=== PATIENT | female | born 1935 | race Caucasian/White ===

== ENCOUNTER 2017-04-25 09:55 | Outpatient (CLI) | payer MEDICARE, MEDICAID ==
[2017-04-25 11:25] LABS: Anion Gap 11 mmol/L (10-20); BUN (Urea Nitrogen) 18 mg/dL (9.8-20.1); Calc. Creatinine Clearance 0 mL/min (70-130); Calcium 9.3 mg/dL (7.8-10.44); Carbon Dioxide 28 mmol/L (23-31); Chloride 104 mmol/L (98-107); Estimated GFR-MDRD 65
[2017-04-25 11:50] LABS: Bilirubin Negative (Negative); Blood, Urine Negative (Negative); Glucose, Urine (Dipstick) Negative (Negative); Ketone, Urine Negative (Negative); Nitrite Negative (Negative); Protein, Urine (Dipstick) Negative (Neg-Trace); Urobilinogen 0.2 mg/dL (0.2-1.0)
[2017-04-25 11:55] LABS: Bacteria/HPF Rare-Few HPF (None Seen); Hyaline Casts/LPF 4-6 HYALINE CAST LPF (0-3 Hyaline); WBC/HPF 0-3 HPF (0-3)
[2017-04-25 12:32] LABS: RBC/HPF 0-3 HPF (0-3)
[2017-04-25] MEDS ORDERED: Iopamidol 370 76% 100 ML VIAL ONE (13:44)
--- NOTE | 2017-04-25 14:38 | CT ---
CT ABDOMEN AND PELVIS WITH AND WITHOUT CONTRAST: Date: 04/25/17 HISTORY: R31.29 microhematuria. N20.20 renal calculi. B17.71. Left lower quadrant pain. COMPARISON: CT stone protocol 08/26/16. FINDINGS: Heart size is mildly prominent. There is mild scarring in the lung base, lingula, and right middle lo be. Extensive atherosclerotic plaque throughout the aorta. There is ectasia of the aorta at the level of the renal arteries measuring up to 3.1 cm, previously 3.0 cm. This is similar. There is also focal ec kirti of the infrarenal abdominal aorta measuring up to 2.6 cm, previously 2.6 cm, unchanged. No aneu rysmal dilatation of the iliac arteries. There has been prior cholecystectomy. Mild prominence of the pancreatic duct. There is extrahepatic a nd intrahepatic biliary dilatation. Duodenal diverticulum is present. Bilobed cyst right lobe of live r is unchanged. There is a punctate calculus right inferior renal collecting system. No obstructive uropathy. The calices are sharp. No hydronephrosis. No hydroureter. No filling defect is appreciated on the uri nary bladder base posterior wall, although the hip arthroplasty does create some limitation of this. There is a small, fat-containing lesion inferior pole right kidney suggestive of an angiomyolipoma. T here is atrophy of the iliacus and psoas muscles bilaterally. There is also atrophy of the gluteus mu scles bilaterally, as well as posterior paraspinal muscles. There is moderate diverticular disease of the sigmoid colon. No active inflammation is currently seen . The appendix is visualized and is normal. Celiac trunk and superior mesenteric artery are patent. There is mild levoscoliosis of the thoracolum bar junction. Moderate to severe degenerative disc space disease throughout the lumbar spine. Severe facet arthropathy of L4-5 and L5-S1. IMPRESSION: 1. Nonobstructive punctate right inferior renal calculus. 2. No filling defects in the renal calices or ureters. 3. Degenerative disc space disease of the lumbar spine as described. 4. Focal ectasia of the abdominal aorta similar to the comparison examination. POS: [facility]
== END 2017-04-25 09:56 | disposition home or self-care (01) ==
LOC: CT 09:55
PROVIDERS: ATTEND Urology
DX: R31.29 Other microscopic hematuria (principal); N20.0 Calculus of kidney; D17.71 Benign lipomatous neoplasm of kidney; M51.36 Other intervertebral disc degeneration, lumbar region; I77.811 Abdominal aortic ectasia
CPT/HCPCS: 36415; 74178; 80048; 81001; 87086; 88112

== ENCOUNTER 2018-04-19 11:41 | Outpatient (CLI) | payer MEDICARE ==
--- NOTE | 2018-04-19 16:04 | BD ---
BONE DENSITOMETRY: INDICATION: An 82-year-old female for postmenopausal osteoporosis screening. FINDINGS: Wrist and lumbar spine evaluated. BMD (g/cm2) UD: 0.390 T-Score: -0.9 Mid: 0.452 T-Score: -2.8 Distal 1/3: 0.591 T-Score: -1.7 Total: 0.459 T-Score: -2.2 Lumbar Spine: BMD (g/cm2) L1 1.127 T-Score: 1.1 L2 1.286 T-Score: 2.3 L3 1.437 T-Score: 3.2 L4 1.352 T-Score: 2.6 L1-L4 1.301 T-Score: 2.3 Impression: 1. The patient's wrist indicates osteopenia. 2. The lumbar spine density is within normal range. Lumbar spine density may be erroneously elevate d due to degenerative sclerosis. 3. The distal 1/3 of wrist density on 05/26/2012 was recorded at 0.644 consistent with mild interval density loss. POS: [facility]
== END 2018-04-19 11:42 | disposition home or self-care (01) ==
LOC: BICMAMMO 11:41
PROVIDERS: ATTEND Family Medicine
DX: Z12.31 Encounter for screening mammogram for malignant neoplasm of breast (principal); M81.0 Age-related osteoporosis without current pathological fracture
CPT/HCPCS: 77063; 77067; 77080

== ENCOUNTER 2018-08-25 22:29 | Observation (INO) | payer MEDICARE, MEDICAID ==
[2018-08-26] MEDS ORDERED: traZODone HCl 50 MG TAB PO PRN (00:08)
--- NOTE | 2018-08-26 00:23 | PDOC.EVN ---
Event Note - Event Note Event Note: H&P [id number]
[2018-08-26] MEDS: Sodium Bicarbonate 50 MEQ in Sodium Chloride 0.45% 1,000 ML IV SCH ×2 (02:00→15:04)
[2018-08-26 03:28] VITALS: BMI 30.9
[2018-08-26] MEDS: metroNIDAZOLE 500 MG in Premix Bag 1 BAG IVPB SCH ×3 (06:26→22:12)
[2018-08-26 08:11] LABS: #Eosinphils 0.1 thou/uL (0.0-0.7); #Lymphocytes 1.1 thou/uL (1.20-3.40); #Monocytes 0.9 thou/uL (0.11-0.59); #Neutrophils 11.9 thou/uL (1.40-6.50); %Basophils 0.1 % (0.0-1.0); %Eosinophils 0.7 % (0.0-10.0); %Lymphocytes 7.6 % (21.0-51.0); %Monocytes 6.7 % (0.0-10.0); %Neutrophils 84.9 % (42.0-75.0); Hemoglobin 12.9 g/dL (12.0-16.0); Mean Corpuscular HGB CONC 33.1 g/dL (32.0-36.0); Mean Corpuscular Hemoglobin 30.6 pg (27.0-31.0); Mean Corpuscular Volume 92.7 fL (78.0-98.0); Platelet Count 157 thou/uL (130-400); RBC Distribution Width 11.9 % (11.5-14.5)
[2018-08-26] MEDS: Amlodipine 5 MG TAB PO SCH (08:22)
[2018-08-26] MEDS: Acetaminophen 325 MG TAB PO PRN (08:22)
[2018-08-26] MEDS: Aspirin 325 MG TAB PO SCH ×2 (08:22→22:12)
[2018-08-26] MEDS: Enoxaparin Sodium 40 MG/0.4 ML SYRINGE SC SCH (08:23)
[2018-08-26] MEDS: Losartan 25 MG TAB PO SCH ×2 (08:23→22:12)
[2018-08-26 08:30] LABS: Anion Gap 14 mmol/L (10-20); BUN (Urea Nitrogen) 24 mg/dL (9.8-20.1); Calc. Creatinine Clearance 80 mL/min (70-130); Calcium 7.8 mg/dL (7.8-10.44); Carbon Dioxide 20 mmol/L (23-31); Chloride 107 mmol/L (98-107); Estimated GFR-MDRD 75; Glucose 86 mg/dL (83-110); Potassium 3.3 mmol/L (3.5-5.1); Sodium 138 mmol/L (136-145)
[2018-08-26] MEDS: Loperamide HCl 2 MG CAP PO PRN (22:11)
[2018-08-26] MEDS: Melatonin 3 MG TAB PO SCH (22:12)
[2018-08-26] MEDS: Donepezil HCl 10 MG TAB PO SCH (22:12)
[2018-08-27] MEDS ORDERED: Lorazepam 2 MG/ML VIAL ONE (00:35)
[2018-08-27] MEDS ORDERED: Lorazepam 2 MG/ML VIAL SLOW IVP SCH (00:45)
[2018-08-27] MEDS: metroNIDAZOLE 500 MG in Premix Bag 1 BAG IVPB SCH (05:50)
[2018-08-27] MEDS: Loperamide HCl 2 MG CAP PO PRN ×3 (05:50→20:27)
[2018-08-27] MEDS: Amlodipine 5 MG TAB PO SCH (07:44)
[2018-08-27] MEDS: Aspirin 325 MG TAB PO SCH ×2 (07:44→20:32)
[2018-08-27] MEDS: Enoxaparin Sodium 40 MG/0.4 ML SYRINGE SC SCH (07:45)
[2018-08-27] MEDS: Losartan 25 MG TAB PO SCH ×2 (07:46→20:26)
[2018-08-27 09:01] LABS: #Basophils 0.1 thou/uL (0.0-0.2); #Eosinphils 0.2 thou/uL (0.0-0.7); #Lymphocytes 1.1 thou/uL (1.20-3.40); #Monocytes 0.5 thou/uL (0.11-0.59); #Neutrophils 9.1 thou/uL (1.40-6.50); %Basophils 0.6 % (0.0-1.0); %Eosinophils 1.6 % (0.0-10.0); %Lymphocytes 10.2 % (21.0-51.0); %Monocytes 4.9 % (0.0-10.0); %Neutrophils 82.7 % (42.0-75.0); Hemoglobin 13.2 g/dL (12.0-16.0); Mean Corpuscular Hemoglobin 30.2 pg (27.0-31.0); Mean Corpuscular Volume 94.3 fL (78.0-98.0); Mean Platelet Volume 8.2 fL (7.4-10.4); Platelet Count 167 thou/uL (130-400); RBC Distribution Width 12.2 % (11.5-14.5); Red Blood Cell (RBC) Count 4.39 mill/uL (4.20-5.40)
[2018-08-27 09:18] LABS: Anion Gap 11 mmol/L (10-20); BUN (Urea Nitrogen) 21 mg/dL (9.8-20.1); Calc. Creatinine Clearance 85 mL/min (70-130); Calcium 8.1 mg/dL (7.8-10.44); Carbon Dioxide 23 mmol/L (23-31); Chloride 107 mmol/L (98-107); Estimated GFR-MDRD 82; Glucose 85 mg/dL (83-110); Potassium 3.1 mmol/L (3.5-5.1); Sodium 138 mmol/L (136-145)
[2018-08-27] MEDS: Potassium Chloride 20 MEQ TAB PO SCH ×2 (10:49→15:48)
--- NOTE | 2018-08-27 17:08 | PDOC.PN ---
- Subjective Encounter Start Date: 08/27/18 Encounter Start Time: 10:20 Pt seen for followup re: diarrhea. Diarrhea is better, no complaints. - Objective Resuscitation Status - Order Detail: 08/26/18 00:06 Resuscitation Status Routine Resuscitation Status: FULL: Full Resuscitation Discussed with: moe CASTAÑEDA Reviewed: Yes Vital Signs & Weight: Vital Signs (12 hours) Temp Pulse Resp BP BP Pulse Ox 08/27/18 16:10 98.3 F 59 L 16 161/63 H 100 08/27/18 10:47 98.0 F 66 18 159/86 H 93 L 08/27/18 10:10 163/72 H 08/27/18 08:00 97.7 F 93 18 199/73 H 92 L 08/27/18 07:44 93 199/73 H 08/27/18 07:29 97.7 F 93 18 199/73 H 90 L Weight Admit Weight 186 lb 4.8 oz Weight 186 lb 4.8 oz I&O: 08/26/18 08/27/18 08/28/18 06:59 06:59 06:59 Intake Total 493 3350 Balance 493 3350 Result Diagrams: 08/27/18 08:54 08/27/18 08:54 Additional Labs: Labs reviewed by me Phys Exam - Physical Examination Constitutional: NAD HEENT: moist MMs Neck: supple Respiratory: clear to auscultation bilateral Cardiovascular: RRR Gastrointestinal: soft Neurological: moves all 4 limbs Psychiatric: normal affect Dx/Plan (1) Diarrhea Code(s): R19.7 - DIARRHEA, UNSPECIFIED Status: Acute Comment: Improved, continue Imodium (2) Generalized weakness Code(s): R53.1 - WEAKNESS Status: Acute Comment: PT eval/tx (3) COPD (chronic obstructive pulmonary disease) Status: Chronic Comment: stable (4) HTN (hypertension) Code(s): I10 - ESSENTIAL (PRIMARY) HYPERTENSION Status: Chronic Comment: monitor vital signs, titrate antihypertensives as needed - Plan * . Review of Systems - Review of Systems Constitutional: weakness Cardiovascular: negative: chest pain, palpitations, orthopnea, paroxysmal nocturnal dyspnea, edema, light headedness Gastrointestinal: Diarrhea. negative: Nausea, Vomiting, Abdominal Pain, Constipation, Melena, Hematochezia - Medications/Allergies Allergies/Adverse Reactions: Allergies Allergy/AdvReac Type Severity Reaction Status Date / Time Latex, Natural Rubber Allergy Verified 08/26/18 03:49 Penicillins Allergy Verified 08/26/18 03:49 rofecoxib [From Vioxx] Allergy Verified 08/26/18 03:49 Medications: Current Medications Acetaminophen (Tylenol) 650 mg PO Q4H PRN PRN Reason: Headache/Fever/Mild Pain (1-3) Last Admin: 08/26/18 08:22 Dose: 650 mg Amlodipine Besylate (Norvasc) 5 mg PO DAILY [facility] Last Admin: 08/27/18 07:44 Dose: 5 mg Aspirin (Aspirin) 325 mg PO BID [facility] Last Admin: 08/27/18 07:44 Dose: 325 mg Donepezil HCl (Aricept) 10 mg PO HS [facility] Last Admin: 08/26/18 22:12 Dose: 10 mg Enoxaparin Sodium (Lovenox) 40 mg SC 0900 [facility] Last Admin: 08/27/18 07:45 Dose: 40 mg Loperamide HCl (Imodium) 2 mg PO PRN PRN PRN Reason: Diarrhea/Loose Stools Last Admin: 08/27/18 05:50 Dose: 2 mg Losartan Potassium (Cozaar) 50 mg PO BID [facility] Last Admin: 08/27/18 07:46 Dose: Not Given Melatonin (Melatonin) 3 mg PO HS [facility] Last Admin: 08/26/18 22:12 Dose: 3 mg Metoprolol Succinate (Toprol Xl) 100 mg PO DAILY [facility] Last Admin: 08/27/18 07:44 Dose: 100 mg Ondansetron HCl (Zofran) 4 mg IVP Q6H PRN PRN Reason: Nausea/Vomiting Sertraline HCl (Zoloft) 50 mg PO HS [facility] Last Admin: 08/26/18 22:12 Dose: 50 mg Sodium Chloride (Flush - Normal Saline) 10 ml IVF Q12HR PRN PRN Reason: Saline Flush Trazodone HCl (Desyrel) 50 mg PO HS PRN PRN Reason: Insomnia Zolpidem Tartrate (Ambien) 5 mg PO HSPRN PRN PRN Reason: Insomnia
[2018-08-27] MEDS: Melatonin 3 MG TAB PO SCH (20:26)
[2018-08-27] MEDS: Donepezil HCl 10 MG TAB PO SCH (20:27)
[2018-08-27] MEDS: Zolpidem Tartrate 5 MG TAB PO PRN (20:32)
[2018-08-27] MEDS: Ondansetron PF 4 MG/2 ML Vial IVP PRN (21:39)
[2018-08-28 06:35] LABS: #Eosinphils 0.3 thou/uL (0.0-0.7); #Lymphocytes 1.8 thou/uL (1.20-3.40); #Monocytes 0.5 thou/uL (0.11-0.59); #Neutrophils 6.7 thou/uL (1.40-6.50); %Basophils 0.4 % (0.0-1.0); %Eosinophils 3.4 % (0.0-10.0); %Lymphocytes 18.9 % (21.0-51.0); %Monocytes 5.1 % (0.0-10.0); %Neutrophils 72.2 % (42.0-75.0); Hemoglobin 12.8 g/dL (12.0-16.0); Mean Corpuscular Hemoglobin 30.3 pg (27.0-31.0); Mean Corpuscular Volume 94.9 fL (78.0-98.0); Mean Platelet Volume 8.6 fL (7.4-10.4); Platelet Count 180 thou/uL (130-400); RBC Distribution Width 12.3 % (11.5-14.5); Red Blood Cell (RBC) Count 4.23 mill/uL (4.20-5.40); White Blood Cell (WBC) Count 9.3 thou/uL (4.8-10.8)
[2018-08-28 06:51] LABS: Anion Gap 10 mmol/L (10-20); BUN (Urea Nitrogen) 17 mg/dL (9.8-20.1); Calc. Creatinine Clearance 87 mL/min (70-130); Calcium 8.2 mg/dL (7.8-10.44); Carbon Dioxide 24 mmol/L (23-31); Chloride 109 mmol/L (98-107); Estimated GFR-MDRD 83; Glucose 94 mg/dL (83-110); Potassium 3.7 mmol/L (3.5-5.1); Sodium 139 mmol/L (136-145)
[2018-08-28] MEDS: Amlodipine 5 MG TAB PO SCH (08:24)
[2018-08-28] MEDS: Aspirin 325 MG TAB PO SCH ×2 (08:25→20:11)
[2018-08-28] MEDS: Enoxaparin Sodium 40 MG/0.4 ML SYRINGE SC SCH (08:26)
[2018-08-28] MEDS: Losartan 25 MG TAB PO SCH ×2 (08:26→20:11)
--- NOTE | 2018-08-28 08:27 | HP ---
CHIEF COMPLAINT: Diarrhea. HISTORY OF PRESENT ILLNESS: This is an 83-year-old female, presenting to the ER with significant diarrhea. The patient states that she has been having diarrhea for the past 2 to 3 days. Denies any changes in medications. Denies any prior antibiotics. Of note, the patient's past medical history is positive for hypertension, COPD, as well as hyperlipidemia. The patient states that apart from diarrhea, she has not had any nausea, vomiting, chest pain, fevers, chills, or shortness of breath. Admits to some abdominal discomfort apart and diarrhea. States that it was only today that she was able to have some food after she was given some Zofran at an outside ER. The patient was then transferred to [facility] ER for further management and care. The patient evaluated in the emergency room by ER resident and then ER attending, found to have a borderline elevated white count of 11 as well as a metabolic acidosis with a bicarbonate at 19. The patient did smell and states that she had a funny smell every time she had diarrhea, bowel movement as well. No diarrhea noted in the ER here. However, at prior ER, the patient did have a bowel movement. The patient was seen and examined in the ER. No family at bedside. All questions were answered. ALLERGIES: PENICILLIN, STATES THAT SHE GETS HIVES WHEN SHE GETS PENICILLIN. PAST MEDICAL HISTORY: Hypertension, hyperlipidemia, COPD. FAMILY HISTORY: Positive for hypertension. SOCIAL HISTORY: Nondrinker. She states that she smoked 2 to 3 packs a day for 40 years, quit approximately 10 years ago. REVIEW OF SYSTEMS: All systems reviewed, pertinent positives in HPI, otherwise negative. PHYSICAL EXAMINATION: VITAL SIGNS: Blood pressure was 115/81, temperature of 98, O2 saturations 98% on room air, and respiratory rate of 16. GENERAL: The patient is lying in bed, in no acute discomfort. C diff type smell is present in the room. HEENT: Pupils are equal, round, and reactive to light and accommodation. Oral cavity, moist and pink. Normocephalic, asymptomatic. NECK: Supple, mobile, nontender. Thyroid appreciated. RESPIRATORY: Clear to auscultation bilaterally. No increase in AP diameter. No respiratory distress. CARDIOVASCULAR: Regular rate and rhythm. S1 and S2. No murmurs, rubs, or gallops appreciated. ABDOMEN: Positive bowel sounds. Soft, nontender. Hyperactive bowel sounds noted. No rebound or guarding noted. EXTREMITIES: 2+ peripheral pulses. No cyanosis, clubbing, or edema. NEUROLOGIC: Cranial nerves 2 through 12 intact. Oral cavity, moist and pink. LABORATORY DATA: CBC shows WBC count is 12, otherwise normal. Basic metabolic panel normal excepting for a mild acidosis with a bicarbonate of 19. The patient was seen and examined in the ER. ASSESSMENT: 1. Clostridium difficile diarrhea, suspected. 2. Chronic obstructive pulmonary disease, stable. 3. Hypertension. 4. Hyperlipidemia. PLAN: At this point in time, we will admit the patient to Internal Medicine Team. Start the patient on IV Flagyl. We will also give half-normal saline with 50 amps of bicarb for 2 L as the patient is mildly acidotic, so we will provide her with an alkaline infusion for 2 L and then discontinue. The patient to be started on clear liquid diet. We will hold off on antidiarrheals. Check C diff panel. Labs in the morning. The patient wishes to remain a full code. Case and plan were discussed with the patient at length. No family at bedside. She understands and agrees with this plan. Job ID: [id number]
[2018-08-28] MEDS: Ondansetron PF 4 MG/2 ML Vial IVP PRN ×2 (10:47→16:10)
--- NOTE | 2018-08-28 17:46 | EKG ---
Test Reason : HR IRREGULAR Blood Pressure : / mmHG Vent. Rate : 073 BPM Atrial Rate : 073 BPM P-R Int : 184 ms QRS Dur : 122 ms QT Int : 454 ms P-R-T Axes : 045 -63 084 degrees QTc Int : 500 ms Sinus rhythm with Premature atrial complexes Left anterior fascicular block Left ventricular hypertrophy with QRS widening and repolarization abnormality Abnormal ECG When compared with ECG of 23-DEC-2003 13:10, Premature atrial complexes are now Present Confirmed by DR. Jamin REICH ([id number]) on 08/28/2018 5:46:06 PM Referred By: LATONIA THOMPSON Confirmed By:DR. Jamin REICH
--- NOTE | 2018-08-28 19:01 | PRG ---
DATE OF SERVICE: 08/28/2018 SUBJECTIVE: Ms. Quintana is a pleasant 83-year-old female with past medical history significant for COPD, hypertension, and hyperlipidemia, who presented to the hospital with a 3-day history of diarrhea. Her C diff screening was negative. Her diarrhea has completely resolved. She denies any chest pain. She does have some wheezing this morning secondary to her COPD. She complains of general weakness and debility and is finding it hard to get herself out of bed by herself. She does live at home alone. As mentioned, the patient has had no further diarrhea. She denies nausea, vomiting, or abdominal pain. She denies any chest pain. At the time of my dictation and seeing the patient, PT has not yet evaluated the patient. OBJECTIVE: VITAL SIGNS: BP 99/76, pulse is 77, respirations are 18, O2 saturation is 96% on room air. GENERAL: This is a mildly obese female, resting comfortably in bed, in no acute distress. HEENT: Atraumatic and normocephalic. Mucous membranes are moist. NECK: No lymphadenopathy. No JVD. No carotid bruits. Trachea is midline. CV: S1 and S2. Regular rhythm. No appreciable murmurs, rubs, or gallops. LUNGS: Respiratory rate and pattern, expiratory wheezes noted posteriorly. No rhonchi or crackles. ABDOMEN: Positive bowel sounds. Soft, nontender. EXTREMITIES: No edema. SKIN: Warm, dry. No obvious rashes. LABORATORY DATA: White blood cell count 9.3, hemoglobin 12.8, hematocrit 40.2, MCV 94.9. Sodium 139, potassium 3.7, chloride 109, carbon dioxide 24, anion gap 10 , BUN 17, creatinine 0.68. ASSESSMENT: 1. Profuse diarrhea on admission with mild acidosis, now resolved, C diff negative. 2. Generalized weakness and debility secondary to acute illness, now unable to perform ADLs. 3. Chronic obstructive pulmonary disease. 4. Hyperlipidemia. 5. Hypertension. PLAN: P.r.n. Patria for wheezing. As mentioned, the patient's presenting symptoms have resolved, but she remains quite debilitated and weak, unable to perform her ADLs secondary to her acute illness. PT, OT consults are pending. At this point, the patient agrees with placement. We will repeat labs in the morning. Further recommendations based on hospital course and placement. Care discussed with Dr. Thomas, who agrees with the above. Job ID: [id number] MTDD
[2018-08-28] MEDS: Donepezil HCl 10 MG TAB PO SCH (20:11)
[2018-08-28] MEDS: Zolpidem Tartrate 5 MG TAB PO PRN (20:11)
[2018-08-28] MEDS: Loperamide HCl 2 MG CAP PO PRN (20:11)
[2018-08-28] MEDS: Melatonin 3 MG TAB PO SCH (20:11)
[2018-08-28] MEDS: cloNIDine 0.1 MG TAB PO PRN (20:11)
[2018-08-29] MEDS: Lorazepam 0.5 MG TAB PO PRN (03:41)
[2018-08-29 07:42] LABS: #Eosinphils 0.3 thou/uL (0.0-0.7); #Lymphocytes 1.6 thou/uL (1.20-3.40); #Monocytes 0.6 thou/uL (0.11-0.59); #Neutrophils 5.9 thou/uL (1.40-6.50); %Basophils 0.3 % (0.0-1.0); %Eosinophils 3.5 % (0.0-10.0); %Lymphocytes 19.1 % (21.0-51.0); %Monocytes 6.9 % (0.0-10.0); %Neutrophils 70.2 % (42.0-75.0); Mean Corpuscular HGB CONC 32.4 g/dL (32.0-36.0); Mean Corpuscular Hemoglobin 30.3 pg (27.0-31.0); Mean Corpuscular Volume 93.7 fL (78.0-98.0); Mean Platelet Volume 8.1 fL (7.4-10.4); Platelet Count 200 thou/uL (130-400); RBC Distribution Width 12.1 % (11.5-14.5); White Blood Cell (WBC) Count 8.4 thou/uL (4.8-10.8)
[2018-08-29] MEDS: Enoxaparin Sodium 40 MG/0.4 ML SYRINGE SC SCH (07:57)
[2018-08-29] MEDS: Aspirin 325 MG TAB PO SCH ×2 (07:57→21:08)
[2018-08-29] MEDS: Losartan 25 MG TAB PO SCH ×2 (07:58→21:09)
[2018-08-29] MEDS: Amlodipine 5 MG TAB PO SCH (07:58)
[2018-08-29 07:59] LABS: Anion Gap 12 mmol/L (10-20); BUN (Urea Nitrogen) 9 mg/dL (9.8-20.1); Calc. Creatinine Clearance 93 mL/min (70-130); Calcium 8.1 mg/dL (7.8-10.44); Carbon Dioxide 24 mmol/L (23-31); Chloride 106 mmol/L (98-107); Estimated GFR-MDRD Greater than 90; Glucose 103 mg/dL (83-110); Potassium 3.5 mmol/L (3.5-5.1); Sodium 138 mmol/L (136-145)
[2018-08-29] MEDS ORDERED: Amlodipine 5 MG TAB PO SCH (12:45)
--- NOTE | 2018-08-29 13:00 | PRG ---
DATE OF SERVICE: 08/29/2018 SUBJECTIVE: Ms. Quintana is a pleasant 83-year-old female with past medical history significant for COPD, hypertension, and hyperlipidemia, who presented to the hospital with a 3-day history of diarrhea. Her C diff screening was negative. Her diarrhea has completely resolved. She denies any nausea or vomiting. Her appetite is good, and she ate 100% of her breakfast. She denies any chest pain or shortness of breath this morning. She does continue to complain of generalized weakness and debility, following her acute illness. She did work with physical therapy yesterday, and states that she does feel somewhat stronger, however, still unable to get herself out of bed by herself at this time. OBJECTIVE: VITAL SIGNS: O2 sat 94% on room air, respirations are 18. BP 172/ 90 P=60s sinus GENERAL: This is a mildly obese female, resting comfortably in bed, in no acute distress. HEENT: Atraumatic and normocephalic. Mucous membranes are moist. NECK: No lymphadenopathy. No JVD. No carotid bruits. Trachea is midline. CV: S1 and S2. Regular rhythm. No appreciable murmurs, rubs, or gallops. LUNGS: Regular respiratory rate and pattern, overall clear today. No wheezes, rhonchi, or crackles noted. ABDOMEN: Positive bowel sounds throughout all 4 quadrants. Soft and nontender. EXTREMITIES: No edema. SKIN: Warm and dry. No evidence of rashes. LABORATORY DATA: White blood cell count 8.4, hemoglobin 13, hematocrit 40. Sodium 138, potassium 3.5, chloride 106, BUN 9, creatinine 0.63, glucose is 103. ASSESSMENT: 1. Profuse diarrhea on admission with mild acidosis, now resolved. C diff screen negative. 2. Generalized weakness and debility secondary to acute illness, not able to perform ADLs, physical therapy recommending inpatient rehab center. 3. Chronic obstructive pulmonary disease. 4. Hyperlipidemia. 5. Hypertension, poorly controlled at this time. PLAN: Continue p.r.n. DuoNeb as needed for wheezing. Her presenting symptoms have resolved, however, she remains generally debilitated and weak secondary to her acute illness. Physical therapy has examined and evaluated the patient and believe that she would require inpatient rehab, and at this point the patient agrees with placement. Case Management is consulting. We will titrate up the patient's amlodipine for improved blood pressure control. Care discussed with Dr. Thomas, who does agree with the above. Job ID: [id number] MTDD
[2018-08-29] MEDS: Melatonin 3 MG TAB PO SCH (21:08)
[2018-08-29] MEDS: Donepezil HCl 10 MG TAB PO SCH (21:08)
[2018-08-29] MEDS: Zolpidem Tartrate 5 MG TAB PO PRN (21:09)
[2018-08-29] MEDS: Acetaminophen 325 MG TAB PO PRN (21:09)
[2018-08-29] MEDS: cloNIDine 0.1 MG TAB PO PRN (21:09)
[2018-08-30] MEDS: cloNIDine 0.1 MG TAB PO PRN (02:32)
[2018-08-30] MEDS: Amlodipine 10 MG TAB PO SCH (08:34)
[2018-08-30] MEDS: Aspirin 325 MG TAB PO SCH ×2 (08:34→20:55)
[2018-08-30] MEDS: Losartan 25 MG TAB PO SCH ×2 (08:34→20:55)
[2018-08-30] MEDS: Enoxaparin Sodium 40 MG/0.4 ML SYRINGE SC SCH (08:35)
[2018-08-30 10:14] LABS: #Eosinphils 0.3 thou/uL (0.0-0.7); #Lymphocytes 1.1 thou/uL (1.20-3.40); #Monocytes 0.7 thou/uL (0.11-0.59); #Neutrophils 5.1 thou/uL (1.40-6.50); %Basophils 0.2 % (0.0-1.0); %Eosinophils 4.3 % (0.0-10.0); %Lymphocytes 14.7 % (21.0-51.0); %Monocytes 9.6 % (0.0-10.0); %Neutrophils 71.2 % (42.0-75.0); Hemoglobin 12.5 g/dL (12.0-16.0); Mean Corpuscular HGB CONC 32.7 g/dL (32.0-36.0); Mean Corpuscular Hemoglobin 30.6 pg (27.0-31.0); Mean Corpuscular Volume 93.6 fL (78.0-98.0); Mean Platelet Volume 8.3 fL (7.4-10.4); Platelet Count 208 thou/uL (130-400); RBC Distribution Width 12.2 % (11.5-14.5); White Blood Cell (WBC) Count 7.2 thou/uL (4.8-10.8)
[2018-08-30 10:30] LABS: Anion Gap 11 mmol/L (10-20); BUN (Urea Nitrogen) 8 mg/dL (9.8-20.1); Calc. Creatinine Clearance 89 mL/min (70-130); Calcium 8.2 mg/dL (7.8-10.44); Carbon Dioxide 26 mmol/L (23-31); Chloride 104 mmol/L (98-107); Estimated GFR-MDRD 86; Glucose 158 mg/dL (83-110); Potassium 3.6 mmol/L (3.5-5.1); Sodium 137 mmol/L (136-145)
--- NOTE | 2018-08-30 19:12 | PRG ---
DATE OF SERVICE: 08/30/2018 SUBJECTIVE: Ms. Quintana is a pleasant 83-year-old female with past medical history significant for COPD, hypertension, and hyperlipidemia, who presented to the hospital with a 3-day history of diarrhea. She has been admitted with colitis. Her Clostridium difficile screening was negative. Her diarrhea has completely resolved at this time. She denies any nausea or vomiting. Her appetite is good. She denies any chest pain or shortness of breath. At this time, she is continuing to work with PT, who re-evaluated her today, and is continuing to recommend inpatient rehab. OBJECTIVE: VITAL SIGNS: Blood pressure 127/71, pulse is 58, respirations 18, O2 saturation 94% on room air. The patient is afebrile. GENERAL: This is a mildly obese female, resting comfortably in bed, in no acute distress. HEENT: Atraumatic and normocephalic. Mucous membranes are moist. NECK: No lymphadenopathy. No JVD. No carotid bruits. Trachea is midline. CV: S1 and S2. Regular rhythm. No appreciable murmurs or rubs or gallops. LUNGS: Regular respiratory rate and pattern, clear to auscultation bilaterally. No wheezes, rhonchi, or crackles. ABDOMEN: Positive bowel sounds throughout all four quadrants. Soft and nontender. EXTREMITIES: No edema. SKIN: Warm and dry. No rashes or abrasions. LABORATORY DATA: White blood cell count 7.2, hemoglobin 12.5, hematocrit 38.4, MCV 93.6, platelet count 208. Chemistry; sodium 137, potassium 3.6, chloride 104, carbon dioxide 26, anion gap 11, creatinine 0.66, and calcium 8.2. ASSESSMENT: 1. Profuse diarrhea on admission with mild acidosis, now resolved. Clostridium difficile screen negative. 2. Generalized weakness and debility secondary to above acute illness, physical therapy, continuing to recommend inpatient rehab center. 3. Chronic obstructive pulmonary disease, stable. 4. Hyperlipidemia. 5. Hypertension. PLAN: The patient's blood pressure is improving with the increased dose of amlodipine. We will continue to monitor. As mentioned, Physical Therapy has re-evaluated the patient today, and is continuing to recommend inpatient rehab as she lives alone and will not be able to perform all of her ADLs at this time. The patient continues to agree and we are waiting for some placement at this point. Case Management is consulting as well. We will continue to titrate her blood pressure medications as needed. Continue p.r.nRegla Ramirez. Care discussed with Dr. Thomas, who agrees with the above. Job ID: [id number]
[2018-08-30] MEDS: Lorazepam 0.5 MG TAB PO PRN (20:54)
[2018-08-30] MEDS: Melatonin 3 MG TAB PO SCH (20:55)
[2018-08-30] MEDS: Donepezil HCl 10 MG TAB PO SCH (20:55)
[2018-08-30] MEDS ORDERED: Artificial Tear Sol 15 ML BOT EA EYE PRN (21:27)
[2018-08-31] MEDS: Losartan 25 MG TAB PO SCH (07:30)
[2018-08-31 07:57] VITALS: TEMP 98.1
[2018-08-31] MEDS: Aspirin 325 MG TAB PO SCH (08:55)
[2018-08-31] MEDS: Amlodipine 10 MG TAB PO SCH (08:56)
[2018-08-31] MEDS: Enoxaparin Sodium 40 MG/0.4 ML SYRINGE SC SCH (08:56)
[2018-08-31 16:24] VITALS: BP 164/78
--- NOTE | 2018-09-01 02:19 | DIS ---
DATE OF ADMISSION: 08/26/2018 DATE OF DISCHARGE: 08/31/2018 ALLERGIES: LATEX, NATURAL RUBBER, PENICILLINS, ROFECOXIB. CHIEF COMPLAINT: Diarrhea. FINAL DIAGNOSES: 1. Profuse diarrhea secondary to gastroenteritis/colitis on admission with mild acidosis. Clostridium difficile screen was negative, now resolved. 2. Chronic obstructive pulmonary disease, stable. 3. Hyperlipidemia. 4. Hypertension. 5. Generalized weakness and debility secondary to her presenting acute illness, status post physical therapy, now back to baseline. PROCEDURES PERFORMED: None. LABORATORY RESULTS: White blood cell count 7.2, hemoglobin 12.5, hematocrit 38.4, and platelets 208. Chemistry; sodium 137, potassium 3.6, chloride 104, carbon dioxide 26, anion gap 11, BUN is 8, creatinine 0.66, GFR is 86. IMAGING RESULTS: EKG showed sinus rhythm with PACs. CONSULTATIONS: None. HOSPITAL COURSE: The patient is an 83-year-old female with past medical history significant for hypertension, hyperlipidemia, and COPD, who presented to the ER with a 2-3 day history of profuse diarrhea. She denied any change in her medications prior to onset of symptoms. She denies any history of antibiotic use. Aside from her diarrhea, the patient had no other GI complaints. She did not suffer from any nausea or vomiting. She denies any chest pain, fevers, chills, or shortness of breath. On arrival to the ER, the patient was found to have borderline elevated white blood cell count as well as a mild metabolic acidosis with a bicarb level of 19. The patient was initially started on IV Flagyl, although C diff screen was negative and this was stopped. She was given half-normal saline with 50 amps of bicarb for 2 L. The patient's acidosis resolved. She was eventually given antidiarrheals, and her symptoms completely have resolved. She did have some generalized weakness and debility following her acute illness. After PT and OT evaluation, the patient was initially recommended for an inpatient rehab. The patient over the last 2 days however, while awaiting placement, has had significant improvement in her strength and ability to perform her ADLs. She is able to get out of bed, ambulate around her room with her walker without assistance and shower and bath. The patient states that she has no complaints this morning. She denies any chest pain, shortness of breath, or wheezing. As mentioned, she has had no further diarrhea or any abdominal complaints. She is tolerating a full diet. The patient was noted to be mildly hypertensive, and I titrated up her amlodipine. The patient wishes to be discharged home today. PHYSICAL EXAMINATION: VITAL SIGNS: BP 150/79, pulse is 65, O2 saturation is 95% on room air. GENERAL: This is a mildly obese, elderly female, sitting up at the side of the bed, resting comfortably. No acute distress. HEENT: Head is normocephalic, atraumatic. Mucous membranes are moist. Eye movements intact. NECK: Supple. No lymphadenopathy. No JVD. Trachea is midline. RESPIRATORY: Regular respiratory rate and pattern. Clear to auscultation bilaterally. No wheezes, rhonchi, or crackles. GI: Soft, nontender, normal bowel sounds. PERIPHERAL VASCULAR: No lower extremity pitting edema, +2 DP pulses bilaterally. MUSCULOSKELETAL: No joint effusion or swelling. NEUROLOGIC: She is nonfocal. Cranial nerves 2 through 12 are intact. SKIN: Warm and dry. No rashes or discoloration. CONDITION AT DISCHARGE: Stable. DISCHARGE MEDICATIONS: 1. Amlodipine 10 mg one tablet p.o. daily. 2. Aspirin 325 mg one tablet p.o. daily. 3. Donepezil 10 mg tablet one tablet p.o. at bedtime. 4. Losartan 50 mg tablet one tablet p.o. b.i.d. 5. Melatonin 3 mg tablet one tablet p.o. at bedtime. 6. Metoprolol succinate 100 mg tablet one tablet p.o. daily. 7. Zoloft 50 mg tablet one tablet p.o. at bedtime. 8. Trazodone 50 mg tablet p.o. at bedtime. 9. Brimonidine tartrate eyedrops one drop each eye daily. 10. Bromfenac sodium eyedrops one drop each eye daily. 11. Cetirizine 10 mg tablet one tablet daily. 12. Colestipol 1 g p.o. b.i.d. 13. Fluticasone one spray each naris daily. 14. Gabapentin 300 mg p.o. at bedtime. 15. Myrbetriq 50 mg p.o. daily. 16. Potassium chloride 20 mEq one tablet p.o. daily. 17. Tramadol 50 mg tablet p.o. q.8 hours p.r.n. DISCHARGE DISPOSITION: Home. PLAN: The patient will continue her antihypertensive regimen and monitor her blood pressure at home. Continue her DuoNeb p.r.n. for her stable COPD. The patient will be discharged home in good condition today. Her presenting complaints have all resolved. Dr. Thomas agrees with the plan as outlined above. Job ID: [id number]
== END 2018-08-31 17:17 | disposition home or self-care (01) ==
LOC: ERS 22:29 → T4-B 08-26 02:21
PROVIDERS: ADMIT Internal Medicine; ATTEND Internal Medicine
DX: K52.9 Noninfective gastroenteritis and colitis, unspecified (principal); E87.2 Acidosis; J44.9 Chronic obstructive pulmonary disease, unspecified; I10 Essential (primary) hypertension; E78.5 Hyperlipidemia, unspecified; Z87.891 Personal history of nicotine dependence; Z91.040 Latex allergy status; Z88.0 Allergy status to penicillin; Z88.6 Allergy status to analgesic agent; Z79.82 Long term (current) use of aspirin; Z79.51 Long term (current) use of inhaled steroids; Z79.899 Other long term (current) drug therapy
CPT/HCPCS: 80048 ×5; 85025 ×5; 87324; 87449; 93005; 94640; 96365; 96366; 96372 ×5; 96375; 96376 ×2; 97110; 97116 ×2; 97139 ×3; 97530 ×3; 99285; G0378 ×3; 36415; 93010; J1650; J2060; J2405; J7620

== ENCOUNTER 2018-09-18 10:51 | Outpatient (CLI) | payer MEDICARE, MEDICAID ==
--- NOTE | 2018-09-18 11:58 | ULT ---
BILATERAL RENAL ULTRASOUND: Date: 09/18/18 HISTORY: Follow-up of right renal lesion noted on CT. COMPARISON: CT study of 04/25/17. FINDINGS: Real-time imaging of the right and left kidneys performed. The right kidney measures approximately 8. 0 cm in length. The left kidney is 10.3 cm. No cyst, mass, or obstruction. The tiny hypodensity seen in the lower pole of the right kidney on previous CT examination is not visualized. Bladder was empty at the time of this study. IMPRESSION: 1. Right kidney which is slightly small, measuring approximately 8.0 cm in length. 2. Tiny hypodense lesion seen in the lower pole of the right kidney on the previous CT study is not visualized on today's exam. POS: [facility]
--- NOTE | 2018-09-18 12:09 | RAD ---
KUB: Date: 09/18/18 HISTORY: Microscopic hematuria. FINDINGS: The bowel gas pattern appears nonobstructive. No definite renal calculi seen. Arthritic changes of th e spine with scoliosis noted. Postop cholecystectomy change seen. Bilateral hip prostheses present. C alcifications in the pelvis are felt to represent phleboliths. IMPRESSION: No evidence of renal calculi. No acute findings. POS: [facility]
== END 2018-09-18 10:52 | disposition home or self-care (01) ==
LOC: BICULT 10:51
PROVIDERS: ATTEND Urology
DX: D17.71 Benign lipomatous neoplasm of kidney (principal); N20.0 Calculus of kidney; R31.29 Other microscopic hematuria; N27.0 Small kidney, unilateral; N28.9 Disorder of kidney and ureter, unspecified
CPT/HCPCS: 36415; 74018; 76770; 80048; 81001; 87086; 88112

== ENCOUNTER 2019-12-29 23:03 | Inpatient (IN) | payer MEDICARE, MEDICAID, OTHER ==
[2019-12-29] MEDS ORDERED: niCARdipine 20MG In NaCl 20 MG/200 ML BAG ONE (23:08)
--- NOTE | 2019-12-29 23:41 | CT ---
CT head noncontrast HISTORY: Acute pontine hemorrhage. Follow-up. COMPARISON: Earlier exam on the same date. FINDINGS: The large hyperdense up to 4.2 cm x 2.8 cm greatest diameters. Hyperdense blood now layers within the dependent portion of the third and lateral ventricles. There is mild distention of the lateral ventricles. Other chronic-type findings are stable. IMPRESSION : Enlargement of the pontine hemorrhage with intraventricular extension and mild ventricular dilatation .
[2019-12-29 23:43] LABS: Actual Bicarbonate (HCO3a) 16.7 mEq/L (22-28); Analyzer IN Cardio ER; Calcium, Ionized (arterial) 1.17 mmol/L (1.12-1.30); Carboxyhemoglobin (COHb) 0.3 gm% (0.0-3.0); Hemoglobin (Hb) 13.9 g/dL (12.0-16.0); O2 Tension (PaO2), arterial 317.8 mmHg (> 60.0); Potassium - ABG Lab 3.92 mmol/L (3.70-5.30); pH, Arterial 7.47 (7.35-7.45)
[2019-12-29 23:50] LABS: ALV-art Gradient 9.325 (0-20); CO2 Tension 23.5 mmHg (35.0-45.0); Puncture Site RRA
--- NOTE | 2019-12-30 | RAD ---
Chest one view HISTORY: Intubated. Follow-up. COMPARISON: Earlier exam on the same date. FINDINGS: Cardiac silhouette is magnified by projection. Pulmonary vasculature upper limits of normal . Mediastinum is midline with aortic calcification. Tip of endotracheal catheter lies at just above the level of the philomena. Nasogastric tube descends to the abdomen. No evidence of pneumothorax. IMPRESSION : Interval placement of the nasogastric tube, descending to the abdomen. Tip not visualized. Other findings are stable..
[2019-12-30] MEDS ORDERED: Fentanyl 100 MCG/2 ML VIAL ONE (00:11)
[2019-12-30] MEDS ORDERED: Propofol 1,000 MG/100 ML VIAL IV ONE (00:11)
[2019-12-30] MEDS ORDERED: Ondansetron PF 4 MG/2 ML Vial IVP PRN (00:40)
[2019-12-30] MEDS ORDERED: Morphine 2 MG/ML VIAL SLOW IVP PRN (00:42)
--- NOTE | 2019-12-30 01:18 | HP ---
HISTORY OF PRESENT ILLNESS: The patient is an 84-year-old female with a past medical history of hypertension, hyperlipidemia, COPD, who presented to the Emergency Department per EMS after being found down by EMS when they were alerted to check on the patient following pushing her Life Alert button. The patient was brought to the [facility] with a GCS of 6. She was not opening her eyes, not responding to voice, and would only withdraw over the extremities. She was also significantly hypertensive upon arrival to their department. Initial blood pressure on arrival was systolic blood pressure 235. The patient was evaluated with a noncontrast CT of head, which was notable for an acute pontine hemorrhage. Neurosurgery was consulted and I recommended to transfer of the patient to [facility] for further management. Also recommended starting the patient on a Cardene drip for hypertensive control. The patient presented to [facility], where I evaluated the patient at the bedside. She had very minimal exam findings, although having been off sedation for approximately 40 minutes. She does not open her eyes. Pupils were pinpoint, NR. She does not have a cough or gag. She only had some slight withdrawal of the lower extremities. Noncontrast head CT was repeated, which showed expansion of the pontine hemorrhage with intraventricular extension and slight enlargement of the ventricles. I discussed the case with Dr. Godfrey and he also reviewed the imaging and we felt that the patient would benefit from EVD placement. PAST MEDICAL HISTORY: Hypertension, hyperlipidemia, and COPD. SOCIAL HISTORY: She has a history of former smoker, but quit 10 years ago. She does not drink or use any drugs. REVIEW OF SYSTEMS: Unobtainable. ALLERGIES: SHE IS ALLERGIC TO PENICILLIN, LATEX, AND ROFECOXIB. PHYSICAL EXAMINATION: GENERAL: On exam, the patient remains slightly hypertension, systolic blood pressure was in the 170s on my arrival. GCS remained to 6. HEENT: Head, normocephalic and atraumatic. Pupils pinpoint, NR. ENT, endotracheal tube in place. No gag reflex is appreciated. CARDIAC: Regular rate and rhythm. PULMONARY: Symmetric chest expansion. MUSCULOSKELETAL: No obvious deformities. Symmetric pulses. NEUROLOGIC: GCS of 6. She does not open her eyes. She has no voice, but will withdraw over the lower extremities. ASSESSMENT AND PLAN: This is an unfortunate 84-year-old female, who suffered an acute pontine hemorrhage, likely related to her hypertension. Her hypertension is improving on Cardene. She is noted to have some enlargement of the ventricles and ventricular extension of the hemorrhage. Therefore, an EVD was placed at the bedside in the Emergency Department. This has been set at a rate of 10 cm of water. Given dose of ancef following. We will monitor her neurologic exam closely and plan to repeat a.m. head CT. Critical care and the Medicine Service have been consulted to assist with care of this patient. This is a 70-minute patient encounter, where greater than 50% was spent in [id number] contact. The remainder of the visit was spent in review of imaging , review of records, consultation of additional physicians and discussion with Dr. Godfrey, and formulate the plan. Job ID: [id number] [id number]
--- NOTE | 2019-12-30 01:23 | OP ---
DATE OF PROCEDURE: 12/30/2019 PREPROCEDURE DIAGNOSES: Acute pontine hemorrhage, interventricular hemorrhage, and hydrocephalus. PROCEDURE PERFORMED: Right external ventricular drain placement with lenny hole. DESCRIPTION OF PROCEDURE: Staci's point was locally as to the right frontal scalp. This was marked, prepped with ChloraPrep, and draped in sterile fashion. A 15 blade was used to incise the scalp down to the periosteum making roughly 1 cm incision. Cranial twist drill was then used to create a lenny hole at Staci's point in the frontal bone. The dura was cleared using blunt dissection, and then an interventricular catheter was placed at the depth of 6 cm with slow egress of serosanguineous fluid from the catheter. This was then hooked up to the Pickens drain. The incision was closed using Ethilon suture and secured to the scalp using silk suture. The drain was set to 10 cm of water. The patient tolerated the procedure well. I have started the patient on clindamycin. Job ID: [id number]
[2019-12-30] MEDS: niCARdipine 25 MG in Sodium Chloride 0.9% 250 ML 240 ML IVPB PRN ×3 (02:42→09:59)
[2019-12-30] MEDS: Sodium Chloride 0.9% 1,000 ML IV SCH ×2 (02:43→13:18)
[2019-12-30 03:10] VITALS: BMI 27.6
[2019-12-30] MEDS ORDERED: Prevnar 13-Val Conj/PF 0.5 ML SYRINGE IM ONE (03:45)
[2019-12-30] MEDS: Clindamycin/D5W 600 MG in Premix Bag 1 BAG IVPB SCH ×2 (06:26→13:00)
[2019-12-30 06:55] LABS: Actual Bicarbonate (HCO3a) 23.1 mEq/L (22-28); Base Excess (BEa) 0.5 mEq/L (-2.0 to +3.0); CO2 Tension 31.6 mmHg (35.0-45.0); Calcium, Ionized (arterial) 1.12 mmol/L (1.12-1.30); Carboxyhemoglobin (COHb) 0.7 gm% (0.0-3.0); Hemoglobin (Hb) 13.8 g/dL (12.0-16.0); O2 Tension (PaO2), arterial 121.3 mmHg (> 60.0); Potassium - ABG Lab 4.08 mmol/L (3.70-5.30); pH, Arterial 7.48 (7.35-7.45)
[2019-12-30 07:31] LABS: Puncture Site LR
--- NOTE | 2019-12-30 08:30 | CON ---
DATE OF CONSULTATION: 12/30/2019 35 minutes critical care time. REASON FOR CONSULTATION: Acute respiratory failure related to a pontine hemorrhage. HISTORY OF PRESENT ILLNESS: Abigail Quintana is an 84-year-old female, who pressed her Life Alert button last night. She was found by EMS to be unconscious. She was taken to [facility] and subsequently transferred here. She is found to have a large pontine hemorrhage and extremely elevated blood pressure. She had an EVD placed last night. She has been unresponsive except for withdrawal to pain. PAST MEDICAL HISTORY: 1. COPD. 2. Hyperlipidemia. 3. Hypertension. She has a baseline FEV1 of 1.5 L which is 80% predicted. SOCIAL HISTORY: Quit smoking about 10 years ago after smoking 2-3 packs a day for 40 years. MEDICATIONS: Prior to admission, have not been confirmed. They are listed under the home medication section on the chart. REVIEW OF SYSTEMS: Cannot be obtained as the patient is unconscious, on mechanical ventilation. PHYSICAL EXAMINATION: VITAL SIGNS: Temperature 97.7, pulse 49, blood pressure 139/55, O2 saturation 98%. She is on mechanical ventilation. HEENT: Pupils are 3 mm, sluggishly reactive. Sclerae anicteric. Oropharynx, ET tube in place. NECK: No adenopathy or JVD. CHEST: Clear to auscultation. CARDIAC: S1, S2. Regular. ABDOMEN: Soft. EXTREMITIES: No edema. NEUROLOGIC: She will withdraw to pain all extremities. LABORATORY DATA: ABG; pH 7.48, pCO2 of 31, PO2 of 121 on SIMV rate 12, tidal volume 450, PEEP 5, pressure support 10, and FiO2 of 30%. White blood cell count is 7.3, hematocrit 41, and platelet count 207. INR 1.1. Sodium 133, potassium 4.6, chloride 103, CO2 of 18, BUN 20, creatinine 0.8. Chest x-ray shows no mass, effusion, or infiltrate. ET tube is in proper position. CT scan showed a pontine hemorrhage with extension of the ventricles. ASSESSMENT: 1. Hypertensive brain bleed in the pontine area. 2. Severely compromised neurologic status. 3. Underlying chronic obstructive pulmonary disease. 4. Malignant hypertension. PLAN: 1. Continue Cardene drip. 2. Continue supportive care with mechanical ventilation, current settings are appropriate. 3. Further disposition per Neurosurgery. It looks like her prognosis is quite poor for functional recovery. Job ID: [id number]
[2019-12-30] MEDS ORDERED: Famotidine/PF 20 mg/2ml Vial SLOW IVP SCH (09:00)
--- NOTE | 2019-12-30 09:15 | CT ---
CT OF THE BRAIN WITHOUT CONTRAST: INDICATION: History of pontine hemorrhage; followup intraparenchymal hemorrhage. COMPARISON: Prior exam dated 12/29/2019 at 11:34 p.m. FINDINGS: Since the comparison examination, there has been interval performance of a right frontal lenny hole an d placement of a right ventriculostomy catheter within the right lateral ventricle. The mild hydroce phalus appears stable. Intraventricular hemorrhage within the posterior horns of the lateral ventric les and posterior aspect of the third ventricle is similar-appearing. There is stable diffuse fillin g of the 4th ventricle with hemorrhage extending out the cerebellopontine angles. A small amount of subarachnoid hemorrhage now layers along the sulci of both parietal lobes. The intraparenchymal hemo rrhage centered within the pontine region measures 3.7 x 3.4 cm in size, which by area is slightly mo re pronounced than on the prior examination. There is persistent narrowing of the prepontine cistern . No midline shift is evident. Chronic ischemic change is similar-appearing. Mastoid air cells and paranasal sinuses are clear. IMPRESSION: 1. Interval placement of a right lateral ventricle ventriculostomy catheter. 2. Stable hydrocephalus with intraventricular hemorrhage. 3. Interval development of some layering hemorrhage within sulci of both parietal regions. 4. Slight interval enlargement of the pontine intraparenchymal hemorrhage when compared to the prior dated 12/29/2019 at 11:34 p.m. POS:
--- NOTE | 2019-12-30 09:40 | PDOC.HOSPP ---
- Subjective Encounter Date: 12/30/19 Encounter Time: 09:15 Subjective: on vent, off sedation, unresponsive is not moving any extremity on purpose - Objective Vital Signs & Weight: Vital Signs (12 hours) Temp Pulse Resp BP Pulse Ox 12/30/19 08:00 95.0 F L 12 12/30/19 06:45 53 L 140/58 L 12/30/19 06:00 12 12/30/19 02:00 97.7 F 12/30/19 01:30 97 Weight Weight 156 lb 8.451 oz Most Recent Monitor Data Heart Rate from ECG 56 NIBP 137/59 NIBP BP-Mean 85 Respiration from ECG 15 SpO2 97 I&O: 12/29/19 12/30/19 12/31/19 06:59 06:59 06:59 Intake Total 730 Output Total 685 100 Balance 45 -100 Hospitalist ROS - Review of Systems ROS unobtainable: due to endotracheal tube - Medication Medications: Active Medications Generic Name Dose Route Start Last Admin Trade Name Freq PRN Reason Stop Dose Admin Famotidine 20 mg 12/30/19 09:00 12/30/19 09:18 Pepcid SLOW IVP 20 mg Q12HR DAX Administration Nicardipine HCl 25 mg/ Sodium 250 mls @ 0 mls/hr 12/30/19 00:40 12/30/19 06: 26 Chloride IVPB 250 mls INF PRN Administration SBP > 140 Protocol Titrate Sodium Chloride 1,000 mls @ 80 mls/hr 12/30/19 00:45 12/30/19 02:43 Normal Saline 0.9% IV 1,000 mls .[id number] DAX Administration Clindamycin Phosphate/Dextrose 50 mls @ 100 mls/hr 12/30/19 06:00 12/30/19 06 :26 600 mg/ Device IVPB 50 mls Q8HR DAX Administration - Exam General Appearance: ill appearing Eye: anicteric sclera ENT: no oropharyngeal lesions, dry oral mucosa ENT - other findings: has EVD over right frontal scalp Neck: supple, no JVD Heart: no murmur, no gallops Respiratory: no wheezes, no rales Gastrointestinal: soft, non-tender, non-distended, normal bowel sounds Extremities: no cyanosis, no edema Neurological - other findings: extremities are flaccid, has withdrawal to babinski b/l Left>right Hosp A/P (1) Pontine hemorrhage Code(s): I61.3 - NONTRAUMATIC INTRACEREBRAL HEMORRHAGE IN BRAIN STEM Status: Acute (2) Hypertensive emergency Code(s): I16.1 - HYPERTENSIVE EMERGENCY Status: Acute (3) Dyslipidemia Code(s): E78.5 - HYPERLIPIDEMIA, UNSPECIFIED Status: Chronic (4) COPD (chronic obstructive pulmonary disease) Status: Chronic Qualifiers: COPD type: chronic bronchitis (5) HTN (hypertension) Code(s): I10 - ESSENTIAL (PRIMARY) HYPERTENSION Status: Chronic Qualifiers: Hypertension type: essential hypertension Qualified Code(s): I10 - Essential (primary) hypertension - Plan is on cardene drip, sbp stable now has evd for raised intracranial pressure from large pontine bleed with intraventricular extn on vent, off sedation is obtunded prognosis guarded, await nsx opinion will f/u
--- NOTE | 2019-12-30 10:28 | PRG ---
DATE OF SERVICE: 12/30/2019 The patient is seen and examined. I agree with Priti Helm's evaluation on 12/29/2019. The patient is an 84-year-old woman, who was found unresponsive at home after activating her Life Alert. She was intubated on route or in the ER. She has not had any sedation this morning and there are no other confounding factors with her neurologic exam. She does not eye open. Her pupils are 2 to 3 mm and not definitively reactive bilaterally. She has a positive right corneal reflex and a left corneal reflex. She is overbreathing the ventilator. She is moving all 4 extremities purposefully to noxious stimulus. CT of the head reveals extensive posterior fossa hemorrhage involving the cerebellar vermis and the lower audi, upper medulla. There is obliteration of the fourth ventricle and some matriculate extension. Based on initial ventricular enlargement, a ventriculostomy was placed, which is now draining at a level of 5 cm of water. IMPRESSION AND PLAN: Severe brainstem hemorrhage. Given her age, poor neurologic exam, and the severity of the hemorrhage, she has very poor prognosis for meaningful neurologic recovery. We are hoping to contact some family members and ultimately establish a plan for ongoing level of care. Job ID: [id number]
[2019-12-30 11:23] VITALS: BP 149/62
[2019-12-30] MEDS ORDERED: niCARdipine 50 MG in Sodium Chloride 0.9% 250 ML 230 ML IVPB PRN (11:55)
[2019-12-30 12:26] LABS: SARS-CoV-2 MS2 Positive; SARS-CoV-2 N Gene Negative; SARS-CoV-2 S Gene Negative; SARS-CoV-2 by NAA Not Detected (NotDetected); SARS-CoV-2 orf1ab Negative
[2019-12-30 16:32] VITALS: TEMP 97.9
[2019-12-30] MEDS ORDERED: Morphine 2 MG/ML VIAL SLOW IVP SCH (18:00)
--- NOTE | 2019-12-30 18:05 | PRG ---
DATE OF SERVICE: 12/30/2019 SUBJECTIVE: I visited with Ms. Chamorro's only living relative, her sister, Rachael Arnett in [place] by telephone. The sister is unable to travel and will not be able to visit. She confirms that the patient does not have or living children and that she is the only sibling. I informed the sister that the patient had very severe brainstem hemorrhage with low probability of meaningful neurologic recovery. The sister informs me that in prior discussions with the patient, the patient expressed clear desire not to be maintained on life support or aggressive measures in such a situation. She believed the patient would strongly wish to be taken off the ventilator, particularly given the current situation. Given the patient's previously expressed wishes and the wishes of her next of kin as well as the futility of her current situation with regard to no prospects for meaningful neurologic recovery, we will proceed with extubation and comfort measures only. I have confirmed this with Dr. Pacheco, who shares this opinion. We will discuss with the nurse, provide appropriate orders. Job ID: [id number]
--- NOTE | 2020-01-01 13:14 | DIS ---
DATE OF ADMISSION: 12/29/2019 DATE OF DISCHARGE: 12/30/2019 SUMMARY: DATE OF EXPIRATION: The patient's expiration 12/30/2019. SUMMARY: The patient is an 84-year-old female with a past medical history of hypertension, hyperlipidemia, and COPD, who presented to the Emergency Department on 12/29/2019, after being found down by EMS after they presented, when she pressed her Life Alert button. The patient was brought initially to the [facility] with a GCS of 6, where she was intubated on arrival. She had a noncontrast CT done, which showed a large pontine hemorrhage. She was transferred to [facility] for neurosurgical consultation and further management. Her recommended repeat CT on arrival, which showed expansion of the hematoma as well as development of some ventriculomegaly. The patient was treated with an EVD right frontal at the bedside in the Emergency Department, which was set at a setting of 10 cm of water. Her hypertension was also controlled with an IV Cardene drip. Her exam in the Emergency Department was quite minimal with a GCS of 6. Her pupils were pinpoint and minimally reactive. She would withdraw her lower extremities to some stimulation. Initially, she was not overbreathing in the vent and did not have a gag reflex, although she had recently been medicated. She was monitored overnight in the ICU. Exam on the following morning off sedation, she would not open her eyes. Her pupils remained small at 2 mm and nonreactive. She did have bilateral corneal reflexes present and she was still overbreathing in the ventilator and moving all 4s to noxious stimuli. Dr. Godfrey discussed the case at length with the patient's only living relative the sister in [place], who was unable to travel to our location. She confirmed that the patient did not have a or any living children and that she was the only living sibling. We discussed that she had a severe brainstem hemorrhage with low probability of any meaningful recovery. The sister informed us that the patient expressed a clear desire not to be maintained on any life support or any aggressive measures taken. Given these wishes and the wishes of the patient and wishes of her next of kin, and no prospect of meaningful neurologic recovery, we decided to proceed with extubation and comfort measures only. Following extubation, the patient on 12/30/2019. Job ID: [id number]
== END 2019-12-30 18:27 | disposition expired | DRG 23 ==
LOC: ERS 23:03 → CCU 23:40
PROVIDERS: ADMIT Neurological Surgery; ATTEND Neurological Surgery
PROC: 009630Z Drainage of Cerebral Ventricle with Drainage Device, Percutaneous Approach (ICD-10-PCS; principal; 2019-12-29)
PROC: 5A1935Z Respiratory Ventilation, Less than 24 Consecutive Hours (ICD-10-PCS; 2019-12-29)
PROC: 009600Z Drainage of Cerebral Ventricle with Drainage Device, Open Approach (ICD-10-PCS; 2019-12-30)
DX: I61.3 Nontraumatic intracerebral hemorrhage in brain stem (principal); J96.00 Acute respiratory failure, unspecified whether with hypoxia or hypercapnia; I16.1 Hypertensive emergency; G91.9 Hydrocephalus, unspecified; Z66 Do not resuscitate; Z20.828 Contact with and (suspected) exposure to other viral communicable diseases; I61.5 Nontraumatic intracerebral hemorrhage, intraventricular; I10 Essential (primary) hypertension; R40.2312 Coma scale, best motor response, none, at arrival to emergency department; R40.2112 Coma scale, eyes open, never, at arrival to emergency department; R40.2212 Coma scale, best verbal response, none, at arrival to emergency department; M19.90 Unspecified osteoarthritis, unspecified site; G62.9 Polyneuropathy, unspecified; E78.5 Hyperlipidemia, unspecified; F32.9 Major depressive disorder, single episode, unspecified; F41.9 Anxiety disorder, unspecified; J44.9 Chronic obstructive pulmonary disease, unspecified; Z87.891 Personal history of nicotine dependence; Z88.8 Allergy status to other drugs, medicaments and biological substances; Z90.49 Acquired absence of other specified parts of digestive tract; Z91.040 Latex allergy status; Z88.0 Allergy status to penicillin
CPT/HCPCS: 70450; 71045; 82805; 87635; 94002; 94003; 96365; 96366; 96368; 96375; 99292; J0690; J2704; J3010; J3490; J7050; S0028; U0003